=== PATIENT | male | born 1935 | race Caucasian/White ===

== ENCOUNTER 2019-06-09 09:18 | Emergency (ER) | payer MEDICARE, OTHER ==
[~2019-06-09] VITALS: Ht 180.3 cm; Wt 108.9 kg
[2019-06-09] MEDS ORDERED: LOSARTAN-HCTZ1 EACH PO (10:34)
[2019-06-09] MEDS ORDERED: TAMSULOSIN HCL0.4 M1 PO (10:34)
[2019-06-09] MEDS ORDERED: OMEP20ER PO (10:34)
[2019-06-09] MEDS ORDERED: FINA5 PO (10:34)
[2019-06-09] MEDS ORDERED: ATOR20 PO (10:34)
[2019-06-09] MEDS ORDERED: Norco 5-325 Ta1 EACH PO (12:10)
== END 2019-06-09 12:17 | disposition home or self-care (01) ==
LOC: ER 09:18
DX: M79.672 Pain in left foot (principal); I10 Essential (primary) hypertension; Z79.899 Other long term (current) drug therapy; Z87.891 Personal history of nicotine dependence
CPT/HCPCS: 93971; 99283-25